=== PATIENT | male | born 1960 | race Caucasian/White ===

== ENCOUNTER 2023-05-07 12:49 | Outpatient (REF) | payer OTHER, SELFPAY ==
--- NOTE | 2023-05-07 12:58 | EMG_ITS ---
Chief complaint: Bilateral wrist pain, right worse than left. Denies numbness in fingers. History of right distal radial fracture 2021. Remote history of cervical and thoracic spine fractures per patient report. Denies current neck pain. Reason for referral: Evaluate for Carpal Tunnel Syndrome Referred by: Dr. Marisa Lee Procedure done: Bilateral upper extremities NCS/EMG Precautions and/or limitations: None The limb temperature was monitored continuously and remained between 32-36 degrees C during the performance of the NCS. Nerve Conduction Studies Anti Sensory Summary Table ?Stim Site NR Onset (ms) Norm Onset (ms) Peak (ms) Norm Peak (ms) O-P Amp (?V) Norm O-P Amp Site1 Site2 Delta-0 (ms) Dist (cm) Dewey (m/s) Norm Dewey (m/s) Left Median Anti Sensory (2nd Digit) Wrist ? 2.8 3.4 <3.6 19.0 >10 Wrist 2nd Digit 2.8 14.0 50 Right Median Anti Sensory (2nd Digit) Wrist ? 2.8 3.2 <3.6 15.9 >10 Wrist 2nd Digit 2.8 14.0 50 Right Radial Anti Sensory (Thumb) Forearm ? 1.7 2.1 <3.1 12.5 Forearm Thumb 1.7 0.0 Left Ulnar Anti Sensory (5th Digit) Wrist ? 1.2 2.9 <3.7 15.2 >15.0 Wrist 5th Digit 1.2 14.0 117 Right Ulnar Anti Sensory (5th Digit) Wrist ? 2.6 3.3 <3.7 19.9 >15.0 Wrist 5th Digit 2.6 14.0 54 Motor Summary Table ?Stim Site NR Onset (ms) Norm Onset (ms) O-P Amp (mV) Norm O-P Amp iAmp (mV) Amp (1st) (%) Site1 Site2 Delta-0 (ms) Dist (cm) Dewey (m/s) Norm Dewey (m/s) Left Median Motor (Abd Poll Brev) Wrist ? 3.8 <3.9 5.3 >4.5 7.1 100.0 Elbow Wrist 4.0 21.0 53 >45 Elbow ? 7.8 4.8 6.3 90.6 Right Median Motor (Abd Poll Brev) Wrist ? 3.8 <3.9 8.4 >4.5 10.4 100.0 Elbow Wrist 4.1 22.0 54 >45 Elbow ? 7.9 7.9 9.6 94.0 Left Ulnar Motor (Abd Dig Minimi) Wrist ? 2.6 <3.0 5.7 >5 7.0 100.0 B Elbow Wrist 3.3 21.0 64 >45 B Elbow ? 5.9 5.2 7.0 91.2 A Elbow B Elbow 1.5 10.0 67 >45 A Elbow ? 7.4 4.3 6.2 75.4 Right Ulnar Motor (Abd Dig Minimi) Wrist ? 2.7 <3.0 1.9 >5 2.1 100.0 B Elbow Wrist 4.0 20.5 51 >45 B Elbow ? 6.7 1.8 2.1 94.7 A Elbow B Elbow 1.6 10.0 62 >45 A Elbow ? 8.3 1.6 1.9 84.2 EMG ?Side Muscle Nerve Root Ins Act Fibs Psw Amp Dur Poly Recrt Int Pat Comment Right 1stDorInt Ulnar C8-T1 Nml Nml Nml Nml Nml 0 Nml Complete Right FlexCarRad Median C6-7 Nml Nml Nml Nml Nml 0 Nml Complete Right Biceps Musculocut C5-6 Nml Nml Nml Nml Nml 0 Nml Complete Right Triceps Radial C6-7-8 Nml Nml Nml Nml Nml 0 Nml Complete Right Deltoid Axillary C5-6 Nml Nml Nml Nml Nml 0 Nml Complete Left 1stDorInt Ulnar C8-T1 Nml Nml Nml Nml Nml 0 Nml Complete Left FlexCarRad Median C6-7 Nml Nml Nml Nml Nml 0 Nml Complete Left Biceps Musculocut C5-6 Nml Nml Nml Nml Nml 0 Nml Complete Left Triceps Radial C6-7-8 Nml Nml Nml Nml Nml 0 Nml Complete Left Deltoid Axillary C5-6 Nml Nml Nml Nml Nml 0 Nml Complete Paraspinal EMG ?Side Muscle Nerve Root Ins Act Fibs Psw Comment Right Cervical Upper Rami Nml Nml Nml Right Cervical Mid Rami Nml Nml Nml Right Cervical Lower Rami Nml Nml Nml Left Cervical Upper Rami Nml Nml Nml Left Cervical Mid Rami Nml Nml Nml Left Cervical Lower Rami Nml Nml Nml FINDINGS: Right ulnar motor nerve showed normal distal latency, small amplitude and normal conduction velocity. No conduction block seen. Right ulnar sensory nerve was within normal. All other nerves tested were within normal. Concentric needle EMG was performed in selected muscles of the bilateral upper extremities and cervical paraspinal. Study did not reveal sign of electric abnormalities as shown in the table below. IMPRESSION: 1. There is no electrodiagnostic evidence for median neuropathy, brachial plexopathy, or cervical radiculopathy. 2. Cannot rule out a chronic right ulnar neuropathy. Thank you for your kind referral. Candelaria Drew MD, KEY Board Certified, [place] [employer] (ABPMR) Board Certified, [place] [employer] (ABEM) CODIN [id number] x 2 MTDD
== END 2023-05-07 12:50 | disposition home or self-care (01) ==
LOC: HO.NEURO 12:49
PROVIDERS: PCP Internal Medicine; Visit Provider Orthopaedic Surgery
DX: M79.641 Pain in right hand (principal); M79.642 Pain in left hand
CPT/HCPCS: 95886; 95911

== ENCOUNTER → 2023-05-07 12:58 | Outpatient (BNV) | payer OTHER, SELFPAY | PROVIDERS: PCP Internal Medicine; Visit Provider Physical Medicine & Rehabilitation | DX: M25.532 Pain in left wrist (principal); M25.531 Pain in right wrist | CPT/HCPCS: 95886; 95911 ==

== ENCOUNTER 2023-07-13 04:31 | Emergency (ER) | payer OTHER, SELFPAY ==
--- NOTE | ~2023-07-13 | XR_ITS ---
EXAMINATION: XR HAND, RIGHT CLINICAL INFORMATION: Pain. COMPARISON: None available. TECHNIQUE: PA, lateral, and oblique views of the right hand. FINDINGS: The bones and soft tissues are normal. No fracture. Alignment is anatomic. Joint spaces are maintained. No erosions or soft tissue calcifications. XR/XR hand RT min 3V IMPRESSION: No significant abnormality seen.
[2023-07-13 04:51] VITALS: BP 141/80; PULSE 79; RESP 20; TEMP 36.7; O2SAT 98; BMI 28.7
[2023-07-13 06:21] VITALS: BP 135/76; PULSE 64; RESP 16; O2SAT 96
--- NOTE | 2023-07-13 06:37 | ED_ITS ---
HPI - Extremity Problem General Chief complaint: Extremity Injury, Upper Stated complaint: right wrist inj Time Seen by Provider: 07/13/23 06:35 Source: patient, RN notes reviewed and old records reviewed Mode of arrival: ambulatory History of Present Illness HPI Narrative: 62-year-old male with no sig past medical history presenting to the ED complaining acute on chronic right hand/wrist pain s/p injury 2 years ago. Admits has been seeing Orthopedics, receiving cortisone injections most recently last week and icing daily without relief. Also reports taking Tylenol and Suboxone. Denies fever/chills, recent injury/trauma or fall, history, numbness/tingling Related Data Previous Rx's Medication Instructions Recorded diclofenac sodium 1 % topical gel 4 g topical QID #100 grams 07/13/23 (Aleve (diclofenac)) ketorolac 10 mg tablet 10 mg PO TID PRN pain 5 days #15 07/13/23 tabs prednisone 20 mg tablet 40 mg (2 x 20 mg) PO DAILY 5 days 07/13/23 #10 tabs Allergies Allergy/AdvReac Type Severity Reaction Status Date / Time lisinopril AdvReac Cough Verified 07/13/23 04:55 morphine AdvReac Hallucinati Verified 07/13/23 04:54 ons Review of Systems Review of Systems: Constitutional: No Fever, No Chills ENT/Mouth: No Ear Pain, No Nasal Congestion, No sore throat, No Rhinorrhea, No Swallowing Difficulty Cardiovascular: No Chest Pain, No SOB Respiratory: No Cough, No Sputum Gastrointestinal: No Nausea, No Vomiting, No Diarrhea, No Constipation, No Abdominal pain Musculoskeletal: +joint pain, No Myalgias, + Joint Swelling Skin: No Skin Lesions, No rash Neuro: No Weakness, No Numbness, No Paresthesias Yes all other systems are reviewed and are negative Constitutional: Constitutional: Reports as per HPI [facility] Past Medical History Attestation statement: The following information was validated with the patient. Source: old records reviewed Social History Social History Advance Directives: Yes Advance Directives Information Provided: Yes Advance Directives on File: No Physical Exam Vital Signs: Vital Signs: Last Vital Signs Temp 98.0 F 07/13/23 04:51 Pulse 64 07/13/23 06:21 Resp 16 07/13/23 06:21 BP 135/76 07/13/23 06:21 Pulse Ox 96 07/13/23 06:21 O2 Del Method Room Air 07/13/23 06:21 BMI result Body Mass Index 28.7 Const: General: cooperative, healthy appearing and no acute distress Orientation/consciousness: patient oriented x3 Limitations: no limitations HEENT: Head: Yes normal to inspection and Yes atraumatic Ears: hearing grossly normal bilaterally General nose exam: Normal external nose present Face and sinus: Yes normal facial exam Eyes: General: appearance normal, both eyes and all related structures EOM: EOMs intact bilaterally Neck: Neck: Yes normal visual inspection and Yes no meningeal signs Resp: Effort & Inspection: normal respiratory effort and no respiratory distress Cardio: Rate: regular rate Peripheral pulses: Peripheral pulses 2+ throughout Skin: Rashes: no rashes Wounds: no wounds Neuro: General: patient oriented x3, tone normal and no meningeal signs Cranial nerves: Yes CN's II-XII intact bilaterally Gait exam (Neuro): Normal gait present Extrem: Other: Right hand/wrist without noted deformity. Diffusely tender to palpation with limited ROM to wrist secondary to pain. No erythema/warmth. Neurovascularly intact. No crepitus. Digit ROM/finger to thumb opposition intact. Sensation intact to light touch. General: Yes normal to inspection Course Course Course Narrative: XR hand RT min 3V IMPRESSION: No significant abnormality seen. Results discussed with patient including worrisome signs and symptoms and strict return precautions, and when to return to the emergency department. They verbalized understanding and feel safe for discharge at this time. Medications Administered Discontinued Medications Generic Name Dose Route Start Last Admin Trade Name Tom PRN Reason Stop Dose Admin Ketorolac Tromethamine 30 mg 07/13/23 06:49 07/13/23 07:01 Ketorolac Tromethamine 30 Mg/Ml Vial IM 07/13/23 06:50 30 mg ONCE ONE Administration Medical Decision Making Medical Decision Making MDM Narrative: 62-year-old male with no sig past medical history presenting to the ED complaining acute on chronic right hand/wrist pain s/p injury 2 years ago. On exam vital signs stable, NAD, nontoxic appearing physical exam as noted above. Concern for osteoarthritis vs acute on chronic pain. Low suspicion for gout, no evidence of septic joint/arthritis. Unlikely DVT Plan: X-ray, I am Toradol, orthopedic follow-up. Discussed with patient at length he may need an MRI, however needs to follow-up with orthopedics outpatient Please refer to course for remaining clinical decision making, interpretation of labs/imaging results, and discussions with consultants and/or family members. Differential Diagnosis Differential Diagnoses: The differential diagnosis associated with the presentation includes As above Independent Interpretation I performed an independent interpretation of an: Plain X-Ray Radiology Impression Discussion of test interpretation with radiology: I have reviewed the radiologist's reading. External Record Review External record reviewed: Inpatient record, Office record, Outpatient record, Prior outpatient labs, Prior outpatient radiology, Primary care record and Outside ED record Tests considered The following testing was considered but not selected: As above Prescription Management I considered prescription management with: Pain Medication Discharge Plan Discharge Clinical Impression: Chronic pain of right wrist, Chronic hand pain Patient Disposition: Home, Self-Care Instructions: Chronic Pain (ED) Additional Instructions: Your x-rays are unremarkable Toradol as an anti-inflammatory/pain medication, take with food Prednisone as a steroid which will help with arthritic flare In addition continue taking Tylenol and topical diclofenac as a topical anti- inflammatory pain medication Please continue to follow-up with Orthopedics, and pain management would be helpful If area begins look infected, is red there is drainage or pain is unbearable return to the Prescriptions: New ketorolac 10 mg tablet 10 mg PO TID PRN (Reason: pain) 5 Days Qty: 15 0RF diclofenac sodium [Aleve (diclofenac)] 1 % gel 4 g topical QID Qty: 100 0RF Rx Instructions: apply to single knee, ankle, foot; for foot includes sole/toes/top of foot prednisone 20 mg tablet 40 mg PO DAILY 5 Days Qty: 10 0RF Referrals: [facility] [place] Orthopedic Surgeons [Provider Group] [facility] [place] Pain Management [Provider Group] Parth Dykes DO, MD [Primary Care Provider] - Discharge Date/Time: 07/13/23 07:26
[2023-07-13] MEDS: Ketorolac Tromethamine 30 MG/ML VIAL IM (07:01)
== END 2023-07-13 07:26 | disposition home or self-care (01) ==
PROVIDERS: Emergency Provider Emergency Medicine Emergency Medical Services; PCP Internal Medicine
DX: M25.531 Pain in right wrist (principal); M79.641 Pain in right hand
CPT/HCPCS: 73130; 96372; 99283; 99284; J1885